=== PATIENT | female | born 1945 ===

== ENCOUNTER 2021-12-23 05:47 | Day surgery (SDC) | payer OTHER | END 2021-12-23 12:55 | disposition home or self-care (01) | LOC: AMB-ENDOS 05:47 | PROVIDERS: ATTEND Colon & Rectal Surgery | DX: K63.5 Polyp of colon (principal); I10 Essential (primary) hypertension; E03.9 Hypothyroidism, unspecified; J45.909 Unspecified asthma, uncomplicated; Z88.6 Allergy status to analgesic agent ==

== ENCOUNTER 2022-03-24 08:15 | Inpatient (IN) | payer OTHER ==
[2022-03-24] MEDS ORDERED: VERELAN180 MG PO (10:19)
== END 2022-04-02 15:12 | disposition home or self-care (01) | DRG 821 ==
LOC: O/R 03-29 05:05 → SURH 03-29 05:05 → SURG 03-29 07:00 → SURH 03-29 12:18
PROVIDERS: ADMIT Colon & Rectal Surgery; ATTEND Colon & Rectal Surgery
PROC: 07TB4ZZ Resection of Mesenteric Lymphatic, Percutaneous Endoscopic Approach (ICD-10-PCS; 2022-03-29)
PROC: 07TC4ZZ Resection of Pelvis Lymphatic, Percutaneous Endoscopic Approach (ICD-10-PCS; 2022-03-29)
PROC: 4A1BXSH Monitoring of Gastrointestinal Vascular Perfusion using Indocyanine Green Dye, External Approach (ICD-10-PCS; 2022-03-29)
PROC: 0DTF4ZZ Resection of Right Large Intestine, Percutaneous Endoscopic Approach (ICD-10-PCS; principal; 2022-03-29 07:00)
DX: C83.39 Diffuse large B-cell lymphoma, extranodal and solid organ sites (principal); K62.5 Hemorrhage of anus and rectum; R59.0 Localized enlarged lymph nodes; I10 Essential (primary) hypertension; E03.9 Hypothyroidism, unspecified